=== PATIENT | female | born 1970 | race Caucasian/White ===

== ENCOUNTER 2024-08-05 00:05 | Emergency (ER) | payer MEDICAID ==
[~2024-08-05] VITALS: Ht 160 cm; Wt 97.0 kg
[2024-08-05 00:08] VITALS: O2SAT 99
[2024-08-05 00:10] VITALS: BP 177/95; PULSE 88; RESP 16; TEMP 36.8; O2SAT 96
[2024-08-05] MEDS: LIDOCAINE HCL 1% 20ML VIAL INFIL ONE (01:00)
== END 2024-08-05 01:55 | disposition home or self-care (01) ==
LOC: ER 00:05
DX: S62.632A Displaced fracture of distal phalanx of right middle finger, initial encounter for closed fracture (principal); Z98.890 Other specified postprocedural states; W23.0XXA Caught, crushed, jammed, or pinched between moving objects, initial encounter; Y93.89 Activity, other specified; Y92.89 Other specified places as the place of occurrence of the external cause; Y99.8 Other external cause status; Z88.5 Allergy status to narcotic agent
CPT/HCPCS: 73140; 12001; 99283; J2003; Z7610 ×2